=== PATIENT | female | born 2000 | race Caucasian/White ===

== ENCOUNTER 2022-06-13 02:39 | Emergency (ER) | payer SELFPAY ==
[~2022-06-13] VITALS: Ht 152.4 cm; Wt 55.0 kg
[2022-06-13 02:58] VITALS: BP 104/65
[2022-06-13 03:41] LABS: CLARITY URINE CLEAR (CLEAR); COLOR URINE ORANGE (YELLOW); KETONES URINE NEGATIVE (NEGATIVE); LEUKOCYTE ESTERASE URINE 2+ (NEGATIVE); NITRITE URINE POSITIVE (NEGATIVE); OCCULT BLOOD URINE NEGATIVE (NEGATIVE); PROTEIN URINE NEGATIVE (NEGATIVE); SPECIFIC GRAVITY URINE 1.009 (1.005-1.030)
== END 2022-06-13 11:38 | disposition left against medical advice (07) ==
LOC: ER 02:39
DX: Z53.21 Procedure and treatment not carried out due to patient leaving prior to being seen by health care provider (principal); Z87.440 Personal history of urinary (tract) infections
CPT/HCPCS: 81003; 99281